=== PATIENT | female | born 1995 | race Caucasian/White ===

== ENCOUNTER 2023-07-19 22:10 | Emergency (ER) | payer MEDICAID ==
[~2023-07-19] VITALS: Ht 162.6 cm; Wt 97.0 kg
[~2023-07-19 22:10] MED LIST: IBUPROFEN; NYQUIL
[2023-07-19 22:27] VITALS: BP 120/83; PULSE 112; RESP 18; TEMP 98.3; O2SAT 97
== END 2023-07-20 00:39 | disposition left against medical advice (07) ==
LOC: ER 22:10
DX: R06.02 Shortness of breath (principal); Z53.21 Procedure and treatment not carried out due to patient leaving prior to being seen by health care provider
CPT/HCPCS: 99281

== ENCOUNTER 2024-10-19 13:48 | Emergency (ER) | payer MEDICAID ==
[~2024-10-19] VITALS: Ht 162.6 cm; Wt 100.0 kg
[2024-10-19 13:57] VITALS: BP 119/68; PULSE 84; RESP 18; TEMP 36.9; O2SAT 100; O2SAT 99
[2024-10-19 16:32] LABS: CLARITY URINE CLEAR (CLEAR); COLOR URINE YELLOW (YELLOW); GLUCOSE URINE NEGATIVE (NEGATIVE); KETONES URINE NEGATIVE (NEGATIVE); LEUKOCYTE ESTERASE URINE 1+ (NEGATIVE); NITRITE URINE NEGATIVE (NEGATIVE); OCCULT BLOOD URINE NEGATIVE (NEGATIVE); PH URINE 7.0 (4.5-8.0); PROTEIN URINE NEGATIVE (NEGATIVE); SPECIFIC GRAVITY URINE 1.015 (1.005-1.030); UROBILINOGEN URINE 0.2 E.U./dL (0.2-1.0)
[2024-10-19 18:13] LABS: BACTERIA URINE TRACE; RBC URINE 0-2 /hpf (0-2); SQUAMOUS EPITHELIAL CELL URINE 1+ /lpf (RARE/1+); WBC URINE 0-2 /hpf (0-2)
== END 2024-10-19 15:16 | disposition left against medical advice (07) ==
LOC: ER 13:48
DX: O26.899 Other specified pregnancy related conditions, unspecified trimester (principal); Z53.21 Procedure and treatment not carried out due to patient leaving prior to being seen by health care provider
CPT/HCPCS: 81003; 81025